=== PATIENT | male | born 1940 | race Caucasian/White ===

== ENCOUNTER → 2016-10-20 | Outpatient (CLI) | payer OTHER ==
[~2016-10-20] MED LIST: FEXO1TAB45 PO; LVTUNK PO; OPTIRAY 320 IV PRN
--- NOTE | 2016-10-20 16:25 | DIAGNOSTIC IMAGING REPORT ---
CT OF THE NECK WITH CONTRAST CLINICAL HISTORY: Neck mass. Neck swelling. COMPARISON STUDY: No previous studies for comparison. TECHNIQUE: Axial images of the neck were obtained following intravenous injection of 115 cc Optiray 320 IV. FINDINGS: Visualized portions of the intracranial contents are unremarkable. There is a small amount of fluid within left mastoid air cells. There are postsurgical findings within the sinuses. There is mild polypoid mucosal thickening of the sinuses. There is no fluid collection within the neck to suggest an abscess. No mass within the neck is present. The epiglottis is normal. Major vasculature of the neck is patent. There is moderate plaque without significant stenosis of the bilateral internal carotid arteries. No suspicious osseous lesions are present. There is a marker placed on the skin at site of swelling. This overlies the right lower neck. There is moderate infiltration within the right lower face and upper to mid neck with thickening of the right platysma muscle. This involves a portion of the right submandibular gland, the anterior portion of the right parotid gland and the right masseter muscle. This reflects a nonspecific inflammatory process. Lung apices are clear. There are no enlarged cervical lymph nodes. No periapical abscesses are identified. IMPRESSION: Moderate right inferior facial and neck infiltration which involves the right submandibular gland, anterior aspect of the right parotid gland and the right masseter muscle. No mass or abscess. The findings are nonspecific but suggest an infectious/inflammatory process. No soft tissue gas. No significant mass effect upon the airway. Electronically signed by: Abdirahman Vega M.D. 10/20/2016 4:24 PM Dictated Date/Time: 10/20/2016 4:12 PM
== END | disposition home or self-care (01) ==
LOC: C.CTS 15:52
PROVIDERS: ATTEND Family Medicine
DX: R22.1 Localized swelling, mass and lump, neck (principal)